=== PATIENT | female | born 1985 | race Caucasian/White ===

== ENCOUNTER 2020-10-17 15:42 | Emergency (ER) | payer OTHER ==
[~2020-10-17 15:42] MED LIST: COLACE 100MG C100 MG PO
== END 2020-10-17 21:50 | disposition home or self-care (01) ==
LOC: ER1 15:42
DX: S53.124A Posterior dislocation of right ulnohumeral joint, initial encounter (principal); S52.101A Unspecified fracture of upper end of right radius, initial encounter for closed fracture; E78.5 Hyperlipidemia, unspecified; W19.XXXA Unspecified fall, initial encounter; Y92.69 Other specified industrial and construction area as the place of occurrence of the external cause; Y99.0 Civilian activity done for income or pay
CPT/HCPCS: 24600; 73060; 73070; 73090; 73200; 99152; 99284; J1170; J1885; J2270; J2405